=== PATIENT | female | born 1990 | race Two or more races ===

== ENCOUNTER 2019-08-27 20:47 | Emergency (ER) | payer SELFPAY ==
--- NOTE | 2019-08-27 21:03 | ER Document Report ---
ED Medical Screen (RME) - General Stated Complaint: ABDOMINAL PAIN/ Time Seen by Provider: 08/27/19 21:01 Notes: HPI: 29-year-old female who is approximately 3 months by dates presenting for vaginal bleeding intermittent over the last 5 days with pelvic cramping but significantly worse tonight. Passing some clots and dark bright red blood. Has not yet seen CLIENT SERVER DEVELOPER. PHYSICAL EXAMINATION: Limited exam in triage, patient with towel over the vaginal region with large amount of dark red blood noted I have greeted and performed a rapid initial assessment of this patient. A comprehensive ED assessment and evaluation of the patient, analysis of test results and completion of medical decision making process will be conducted by an additional ED providers.
[2019-08-27] MEDS ORDERED: ONDANSETRON HCL INJ/PF 4 MG/2 ML SDV IV ONE (21:34)
[2019-08-27] MEDS ORDERED: FENTANYL CITRATE INJ/PF 100 MCG/2 ML AMPUL IV ONE (21:34)
[2019-08-27 21:37] LABS: ABSOLUTE EOSINOPHILS # (AUTO) 0.1 10^3/uL (0.0-0.6); ABSOLUTE LYMPHOCYTES (AUTO) 2.8 10^3/uL (0.5-4.7); ABSOLUTE MONOCYTES (AUTO) 0.7 10^3/uL (0.1-1.4); ABSOLUTE NEUT (AUTO) 4.2 10^3/uL (1.7-8.2); BASOPHILS % (AUTO) 0.4 % (0-2); EOSINOPHILS % (AUTO) 1.2 % (0-6); HEMATOCRIT 35.5 % (36.0-47.0); HEMOGLOBIN 12.1 g/dL (12.0-15.5); LYMPHOCYTES % (AUTO) 35.5 % (13-45); MEAN CORPUSCULAR HEMOGLOBIN 31.2 pg (27.0-33.4); MEAN CORPUSCULAR VOLUME 92 fl (80-97); MONOCYTES % (AUTO) 8.7 % (3-13); PLATELET COUNT 368 10^3/uL (150-450); RED BLOOD COUNT 3.87 10^6/uL (3.72-5.28); RED CELL DISTRIBUTION WIDTH 12.6 % (11.5-14.0); SEGMENTED NEUTROPHILS % (AUTO) 54.2 % (42-78); TOTAL CELLS COUNTED % (AUTO) 100 %; WHITE BLOOD COUNT 7.8 10^3/uL (4.0-10.5)
[2019-08-27 21:46] LABS: ALBUMIN 4.4 g/dL (3.5-5.0); ALKALINE PHOSPHATASE 75 U/L (38-126); ANION GAP 9 (5-19); ASPARTATE AMINO TRANSFERASE 26 U/L (14-36); BILIRUBIN,TOTAL 0.4 mg/dL (0.2-1.3); BLOOD UREA NITROGEN 8 mg/dL (7-20); CALCIUM 10.2 mg/dL (8.4-10.2); CARBON DIOXIDE 25 mmol/L (22-30); CHLORIDE 102 mmol/L (98-107); GLUCOSE 92 mg/dL (75-110); POTASSIUM 4.1 mmol/L (3.6-5.0); TOTAL PROTEIN 7.7 g/dL (6.3-8.2)
--- NOTE | 2019-08-27 22:03 | ER Document Report ---
ED General - General Chief Complaint: OB Problem (<20wks) Stated Complaint: ABDOMINAL PAIN/ Time Seen by Provider: 08/27/19 21:01 Mode of Arrival: Ambulatory Information source: Patient Notes: triage 08/27/19 21:04 - ED Nursing Note by CAROL SAMUELS Num: [id number] : 1990 Patient Age: 29 information through [employer] #[id number]. pt is last period was 05/30/19. for five days some vaginal bleeding. 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 pt w/some cramping. pt crying. explained to pt that we will go to rm, get bloods and IV and check to see what is going on. charge nurse aware and pt to rm 20. Initialized on 08/27/19 21:04 - END OF NOTE tracie CORONADO notes HPI: 29-year-old female who is approximately 3 months by dates p resenting for vaginal bleeding intermittent over the last 5 days with pelvic cramping but significantly worse tonight. Passing some clots and dark bright red blood. Has not yet seen MASTER COSMETOLOGIST. PHYSICAL EXAMINATION: Limited exam in triage, patient with towel over the vaginal region with large amount of dark red blood noted my notes I was called to room by nursing staff as patient was miscarrying in the room. She delivered vaginally a 10 cm clot with placental and fetus contents. Patient denies any suprapubic pain but was very anxious and crying. She speaks some Sinhala but mainly Macedonian. She appeared to understand when I asked and would say yes or no. We did have hourly sign language interpreter on the console. His name was Drew. Patient reports she is 2 para 1 with a 5-year-old at home healthy. Patient denies any history of vaginal bleeding recent or otherwise. She denies any prior history of any miscarriage in the past. She denies any vaginal discharge or recent sex or horseback riding or bicycle riding her motorcycle riding. She denies any back pain fevers chills diarrhea constipation TRAVEL OUTSIDE OF THE [place] IN LAST 30 DAYS: No - Related Data Allergies/Adverse Reactions: No Known Allergies Allergy (Verified 08/27/19 21:54) Home Medications: vitamins. tylenol Past Medical History - General Information source: Patient - also with aid of translators Last Menstrual Period: 05/30/19 - Social History Smoking Status: Never Smoker Cigarette use (# per day): No Chew tobacco use (# tins/day): No Smoking Education Provided: No Frequency of alcohol use: None Drug Abuse: None Lives with: Family - Family History: Reviewed & Not Pertinent Patient has suicidal ideation: No Patient has homicidal ideation: No Review of Systems - Review of Systems Constitutional: See HPI, Weakness EENT: No symptoms reported Cardiovascular: No symptoms reported Respiratory: No symptoms reported Gastrointestinal: No symptoms reported Genitourinary: No symptoms reported Female Genitourinary: See HPI, Last menstrual period - May, , Vaginal bleeding Musculoskeletal: No symptoms reported Skin: No symptoms reported Hematologic/Lymphatic: No symptoms reported Neurological/Psychological: No symptoms reported Physical Exam - Vital signs Vitals: Temp 97.2 F 08/27/19 20:52 Interpretation: Tachycardic, Tachypneic - General General appearance: Alert, Anxious - HEENT Head: Normocephalic, Atraumatic Eyes: Normal Pupils: PERRL Mouth/Lips: Normal Mucous membranes: Normal Pharynx: Normal Neck: Normal - Respiratory Respiratory status: No respiratory distress Chest status: Nontender Breath sounds: Normal Chest palpation: Normal - Cardiovascular Rhythm: Regular Heart sounds: Normal auscultation Murmur: No - Abdominal Inspection: Normal Distension: No distension Bowel sounds: Normal Tenderness: Nontender Organomegaly: No organomegaly - Genitourinary External exam: Normal - Except for vaginal bleeding with passing of large clot with placental conceptual products Speculum exam: Cervix open, Products of conception Vaginal bleeding: Moderate Bimanuel exam: Cervical motion tender - Back Back: Normal - Extremities General upper extremity: Normal inspection General lower extremity: Normal inspection - Neurological Neuro grossly intact: Yes Cognition: Normal Orientation: AAOx4 Valerie Coma Scale Eye Opening: Spontaneous [place] Coma Scale Verbal: Oriented [place] Coma Scale Motor: Obeys Commands [place] Coma Scale Total: 15 Speech: Normal Motor strength normal: LUE, RUE, LLE, RLE Sensory: Normal - Psychological Associated symptoms: Anxious - Skin Skin Temperature: Warm Skin Moisture: Dry Course - Vital Signs Vital signs: Temp Pulse Resp BP Pulse Ox 98.1 F 104 H 13 122/76 98 08/27/19 21:06 08/27/19 21:06 08/27/19 23:00 08/27/19 22:01 08/27/19 23:00 - Laboratory Result Diagrams: 08/27/19 21:11 08/27/19 21:11 Laboratory results interpreted by me: 08/27/19 08/27/19 21:11 21:11 Hct 35.5 L Sodium 136.0 L Creatinine 0.50 L Beta HCG, Quant 94784.00 H - Diagnostic Test Radiology reviewed: Reports reviewed - Ultrasound with uterus nonvisualized ovaries per radiology report. I was in the room while timber management technician was performing the ultrasound. Critical Care Note - Critical Care Note Total time excluding time spent on procedures (mins): 90 Comments: I did not call Dr. Trever Armendariz, OB doctor but advised patient to call him on Thursday and perhaps be seen by him in office. I advised vaginal rest and bedrest Discharge - Discharge Clinical Impression: Complete Condition: Good Disposition: HOME, SELF-CARE Additional Instructions: I advised complete bedrest except for bathroom privileges and complete vaginal rest until seen by Dr. Trever Armendariz or OB doctor of choice. Call Dr. Armendariz's office on Thursday. Take medicines as directed encourage fluids
[2019-08-27] MEDS ORDERED: METHYLERGONOVINE MALEATE INJ/PF 0.2 MG/1 ML AMPULE IV ONE (22:28)
[2019-08-27] MEDS ORDERED: NORMAL SALINE 1000 ML 1,000 ML IV ONE (22:43)
--- NOTE | 2019-08-27 23:15 | RADIOLOGY REPORT (SQ) ---
EXAM DESCRIPTION: US LIMITED COMPLETED DATE/TME: 08/27/2019 21:02 CLINICAL HISTORY: 29 years Female, vag bleed patient delivered fetus and placenta in the ED prior to exam Comparison: None. Technique: Transabdominal. LIMITATIONS: None. FINDINGS: 12-cm recently uterus, 2.9-cm endometrial stripe thickness, nonvisualized ovaries appear otherwise unremarkable in size, shape, echotexture, and vascularity. No free fluid. No retained products of conception. IMPRESSION: uterus. Nonvisualized ovaries.
[2019-08-27] MEDS ORDERED: HYDROCODONE/ACETAMINOPHEN 5-325 MG (6 TAB/ER DISP) PO PRN (23:56)
[2019-08-28 00:11] VITALS: BP 108/44
== END 2019-08-28 00:11 | disposition home or self-care (01) ==
LOC: ER 20:47
DX: O03.9 Complete or unspecified spontaneous abortion without complication (principal); R53.1 Weakness; Z79.899 Other long term (current) drug therapy
CPT/HCPCS: 99285; 96361; 96374; 96375; 86900; 86901; 36415; 84702; 85025; 80053; 88305 ×2; 76815; J3010; J2210; J2405; J7030

== ENCOUNTER → 2019-12-21 | Outpatient (CLI) | payer MEDICAID ==
--- NOTE | 2019-12-21 13:36 | WOMENS IMAGING REPORT ---
EXAM DESCRIPTION: U/S BREAST UNILATERAL, COMPL IMAGES COMPLETED DATE/TIME: 12/21/2019 12:14 pm REASON FOR STUDY: N 64.4 PAIN RIGHT; N64.4 MASTODYNIA LEFT N64.4 MASTODYNIA diffuse breast pain bi laterally. No palpable mass. COMPARISON: None. TECHNIQUE: Real-time and static grayscale imaging performed of the right and left breast . Selected color Doppler images recorded. LIMITATIONS: None. FINDINGS: MASS: No mass identified. Normal glandular tissue. OTHER: No other significant finding. IMPRESSION: No suspicious findings detected by ultrasound in either breast. Further management of t he patient's pain should be based on clinical evaluation. Recommend annual routine screening mammogr aphy beginning at age 40 unless otherwise clinically indicated. BIRAD: 1 Negative. RECOMMENDATION: RECOMMENDED FOLLOW-UP: Follow-up as clinically indicated. COMMENT: The [employer] (ACR) has developed recommendations for screening MRI of the breasts in certain patient populations, to be used in conjunction with mammography. Breast MRI s urveillance may be appropriate for women with more than 20% lifetime risk of developing breast cancer as determined by genetic testing, significant family history of the disease, or history of mantle r adiation for Hodgkins Disease. ACR Practice Guidelines 2008. TECHNICAL DOCUMENTATION: JOB ID: [id number] 2010 [employer]- All Rights Reserved Reading location - IP/workstation name: [email or web address]
--- NOTE | 2019-12-21 13:36 | WOMENS IMAGING REPORT ---
EXAM DESCRIPTION: U/S BREAST UNILATERAL, COMPL IMAGES COMPLETED DATE/TIME: 12/21/2019 12:14 pm REASON FOR STUDY: N 64.4 PAIN RIGHT; N64.4 MASTODYNIA LEFT N64.4 MASTODYNIA diffuse breast pain bi laterally. No palpable mass. COMPARISON: None. TECHNIQUE: Real-time and static grayscale imaging performed of the right and left breast . Selected color Doppler images recorded. LIMITATIONS: None. FINDINGS: MASS: No mass identified. Normal glandular tissue. OTHER: No other significant finding. IMPRESSION: No suspicious findings detected by ultrasound in either breast. Further management of t he patient's pain should be based on clinical evaluation. Recommend annual routine screening mammogr aphy beginning at age 40 unless otherwise clinically indicated. BIRAD: 1 Negative. RECOMMENDATION: RECOMMENDED FOLLOW-UP: Follow-up as clinically indicated. COMMENT: The [employer] (ACR) has developed recommendations for screening MRI of the breasts in certain patient populations, to be used in conjunction with mammography. Breast MRI s urveillance may be appropriate for women with more than 20% lifetime risk of developing breast cancer as determined by genetic testing, significant family history of the disease, or history of mantle r adiation for Hodgkins Disease. ACR Practice Guidelines 2008. TECHNICAL DOCUMENTATION: JOB ID: [id number] 2010 [employer]- All Rights Reserved Reading location - IP/workstation name: [email or web address]
== END ==
LOC: WI 12:42
PROVIDERS: ATTEND Advanced Practice Midwife
DX: N64.4 Mastodynia (principal)
CPT/HCPCS: 76641

== ENCOUNTER 2020-01-12 21:13 | Emergency (ER) | payer MEDICAID ==
[2020-01-12 22:20] VITALS: BP 136/54
--- NOTE | 2020-01-12 23:01 | ER Document Report ---
ED Medical Screen (RME) - General Chief Complaint: Breast Problem Stated Complaint: NECK AND ARM PAIN/NUMBNESS Time Seen by Provider: 01/12/20 22:45 Primary Care Provider: LEOBARDO RODRIGUEZ CNM [Primary Care Provider] - Follow up as needed Mode of Arrival: Ambulatory Information source: Patient Notes: 29-year-old female presented to ED for complaint of pain to both breasts about a month ago. She states she was seen and told that there was nothing going on. About 2 weeks ago she started having pain all over. She had no fever no shortness of breath no runny nose no other symptoms but pain all over. She states she is never had this pain before. I did use [employer] laboratory tech [id number] to do this interview. She has not had any falls or any injuries. I have discussed with her that we will get basic labs and get a covered test and have her seen by another provider. I have greeted and performed a rapid initial assessment of this patient. A comprehensive ED assessment and evaluation of the patient, analysis of test results and completion of medical decision making process will be conducted by an additional ED providers. TRAVEL OUTSIDE OF THE [place] IN LAST 30 DAYS: No - Related Data Allergies/Adverse Reactions: No Known Allergies Allergy (Verified 08/27/19 21:54) Past Medical History - Social History Frequency of alcohol use: None Drug Abuse: None Physical Exam - Vital signs Vitals: Temp Pulse Resp BP Pulse Ox 98.4 F 94 16 136/54 H 100 01/12/20 22:19 01/12/20 22:19 01/12/20 22:19 01/12/20 22:19 01/12/20 22:19 Course - Vital Signs Vital signs: Temp Pulse Resp BP Pulse Ox 98.4 F 94 16 136/54 H 100 01/12/20 22:19 01/12/20 22:19 01/12/20 22:19 01/12/20 22:19 01/12/20 22:19 Doctor's Discharge - Discharge Referrals: LEOBARDO RODRIGUEZ CNM [Primary Care Provider] - Follow up as needed
== END 2020-01-13 02:37 | disposition left against medical advice (07) ==
LOC: ER 21:13
DX: N64.4 Mastodynia (principal); M54.2 Cervicalgia; M79.603 Pain in arm, unspecified; Z53.20 Procedure and treatment not carried out because of patient's decision for unspecified reasons
CPT/HCPCS: 99281

== ENCOUNTER 2020-02-15 14:07 | Emergency (ER) | payer MEDICAID ==
--- NOTE | 2020-02-15 14:32 | ER Document Report ---
ED Medical Screen (RME) - General Chief Complaint: Lower Abdominal Pain Stated Complaint: LOWER ABDOMINAL PAIN Time Seen by Provider: 02/15/20 14:31 Primary Care Provider: JOANNA POLLARD FNP [Primary Care Provider] - Follow up as needed Mode of Arrival: Ambulatory Information source: Patient Notes: 29-year-old female presented to ED for pelvic cramping no bleeding vaginal itching. She states she is about 4 weeks . She states she did have a miscarriage about 6 months ago. She states she is 3 para 1. Her is translating as she speaks Argentine. Patient is answered in some of the questions she understands some of what I saying. But she does not understand her is helping with. She is alert oriented respirations regular nonlabored speaking in full sentences. We will get blood urine and transvaginal ultrasound. I have greeted and performed a rapid initial assessment of this patient. A comprehensive ED assessment and evaluation of the patient, analysis of test results and completion of medical decision making process will be conducted by an additional ED providers. TRAVEL OUTSIDE OF THE [place] IN LAST 30 DAYS: No - Related Data Allergies/Adverse Reactions: No Known Allergies Allergy (Verified 02/15/20 14:35) Doctor's Discharge - Discharge Referrals: JOANNA POLLARD FNP [Primary Care Provider] - Follow up as needed
[2020-02-15 14:38] VITALS: BP 131/81
[2020-02-15 15:04] LABS: ABSOLUTE LYMPHOCYTES (AUTO) 1.8 10^3/uL (0.5-4.7); ABSOLUTE MONOCYTES (AUTO) 0.6 10^3/uL (0.1-1.4); ABSOLUTE NEUT (AUTO) 5.5 10^3/uL (1.7-8.2); BASOPHILS % (AUTO) 0.5 % (0-2); EOSINOPHILS % (AUTO) 0.5 % (0-6); HEMATOCRIT 37.7 % (36.0-47.0); HEMOGLOBIN 12.6 g/dL (12.0-15.5); MEAN CORPUSCULAR HEMOGLOBIN 30.8 pg (27.0-33.4); MEAN CORPUSCULAR HGB CONC 33.4 g/dL (32.0-36.0); MEAN CORPUSCULAR VOLUME 92 fl (80-97); MONOCYTES % (AUTO) 7.3 % (3-13); PLATELET COUNT 370 10^3/uL (150-450); RED BLOOD COUNT 4.08 10^6/uL (3.72-5.28); SEGMENTED NEUTROPHILS % (AUTO) 68.7 % (42-78); TOTAL CELLS COUNTED % (AUTO) 100 %; WHITE BLOOD COUNT 7.9 10^3/uL (4.0-10.5)
[2020-02-15 15:18] LABS: ALBUMIN 4.6 g/dL (3.5-5.0); ALKALINE PHOSPHATASE 79 U/L (38-126); ANION GAP 12 (5-19); ASPARTATE AMINO TRANSFERASE 28 U/L (14-36); BILIRUBIN,DIRECT 0.1 mg/dL (0.0-0.4); BILIRUBIN,TOTAL 0.3 mg/dL (0.2-1.3); BLOOD UREA NITROGEN 9 mg/dL (7-20); CALCIUM 10.2 mg/dL (8.4-10.2); CARBON DIOXIDE 22 mmol/L (22-30); CHLORIDE 105 mmol/L (98-107); GLUCOSE 111 mg/dL (75-110); TOTAL PROTEIN 7.8 g/dL (6.3-8.2)
[2020-02-15 15:22] LABS: APPEARANCE,URINE SLIGHTLY-CLOUDY; BILIRUBIN,URINE NEGATIVE (NEGATIVE); COLOR,URINE YELLOW; GLUCOSE, URINE NEGATIVE (NEGATIVE); KETONES,URINE NEGATIVE (NEGATIVE); LEUKOCYTE ESTERASE,URINE MODERATE (NEGATIVE); NITRITE,URINE NEGATIVE (NEGATIVE); PROTEIN,URINE NEGATIVE (NEGATIVE); URINE SPECIFIC GRAVITY 1.029; UROBILINOGEN,URINE NEGATIVE mg/dL (<2.0)
--- NOTE | 2020-02-15 16:18 | RADIOLOGY REPORT (SQ) ---
EXAM DESCRIPTION: U/S OB TRANSVAGINAL W/O DOP IMAGES COMPLETED DATE/TIME: 02/15/2020 4:04 pm REASON FOR STUDY: about 4 weeks pelvic cramping COMPARISON: None. TECHNIQUE: Transvaginal static and realtime grayscale images acquired of the pelvis. Additional kimberly cted spectral and color Doppler images recorded. All images stored on PACs. CLINICAL AGE: 5 weeks 1 day [facility].31 LIMITATIONS: None. FINDINGS: UTERUS: No visualized intrauterine . Possible arcuate uterus. RIGHT ADNEXA: Normal ovary with normal vascular flow. No adnexal free fluid. No adnexal masses. LEFT ADNEXA: Normal ovary with normal vascular flow. No adnexal free fluid. No adnexal masses. FREE FLUID: None. OTHER: No other significant finding. IMPRESSION: NO VISUALIZED INTRA- OR EXTRAUTERINE . bHCG LEVEL TOO LOW TO EXPECT VISUALIZATION OF . ECTOPIC CANNOT BE EXCLUDED. FOLLOW-UP ULTRASOUND AND SERIAL BHCG LEVELS STRONGLY RECOMMENDED TO ACCURATELY ASSESS STATU S. POSSIBLE ARCUATE UTERUS. TECHNICAL DOCUMENTATION: JOB ID: [id number] 2010 [employer]- All Rights Reserved Reading location - IP/workstation name: [email or web address]
--- NOTE | 2020-02-15 22:00 | ER Document Report ---
ED GI/ - General Chief Complaint: Vaginal Itching Stated Complaint: LOWER ABDOMINAL PAIN Time Seen by Provider: 02/15/20 14:31 Primary Care Provider: ARMANDO THOMAS MD [ACTIVE STAFF] - Follow up as needed JOANNA POLLARD FNP [Primary Care Provider] - Follow up as needed Mode of Arrival: Ambulatory Information source: Patient, Relative Notes: Patient is a 29-year-old female who is accompanied by her to the emergency room complaining of some slight pelvic discomfort with some radiation around to the back and vaginal itching. Patient states that she is approximately 4 weeks . She started having this symptoms approximately 2 days ago. She denies any vaginal discharge or any vaginal bleeding or spotting. Patient understands a lot of Ivorian but does not speak it fluently but her does speak fluent Ivorian and translates for us. He informs me that they have an appointment [facility] Thursday and also follow-up visit with the health department that week as well. Patient is current status shows her to be 3 Para1 A1 which was a spontaneous miscarriage at at 3 months approximately 6 months ago. Patient denies any other medical problems. She denies a history of hypertension or diabetes. Her only live was vaginally. Patient denies any recent use of antibiotics, but she does admit to using body wash that she thoroughly scrubs inside the vaginal introitus. TRAVEL OUTSIDE OF THE [place] IN LAST 30 DAYS: No - HPI Patient complains to provider of: Pelvic pain, . No: Abdominal pain, Dysuria, Flank pain, Hematuria, Urinary retention, Vaginal bleeding, Vaginal discharge, Vaginal pain, Vomiting Onset: Other - 2 to 3 days Timing/Duration: Gradual Quality of pain: Achy Severity at maximum: Moderate Severity in ED: Moderate Pain Level: 3 Context: . denies: Bad food Location: Suprapubic, Vaginal Vaginal bleeding (Compared to normal period): None Menstrual period history: LMP: Approximately 1 month ago : 3 Para: 1 Abortions: 1 ABO type: O+ OB ultrasound done: Yes vitamins taken: Yes Sexual history: Active Associated symptoms: Radiates to back. denies: Odor, Painful intercourse, Shortness of breath, Urinary hesitancy, Urinary frequency, Urinary retention, Urinary urgency, Vaginal discharge Exacerbated by: Denies Relieved by: Denies Similar symptoms previously: No Recently seen / treated by doctor: Yes - Related Data Allergies/Adverse Reactions: No Known Allergies Allergy (Verified 02/15/20 14:35) Past Medical History - General Information source: Patient - Social History Smoking Status: Never Smoker Chew tobacco use (# tins/day): No Frequency of alcohol use: None Drug Abuse: None Lives with: Family Family History: Reviewed & Not Pertinent Patient has homicidal ideation: No Review of Systems - Review of Systems Constitutional: No symptoms reported EENT: No symptoms reported Cardiovascular: No symptoms reported Respiratory: No symptoms reported Gastrointestinal: No symptoms reported Genitourinary: See HPI, Pain. denies: Discharge Female Genitourinary: See HPI, . denies: Irregular period, Vaginal discharge, Vaginal bleeding, Vaginal odor, Painful intercourse Musculoskeletal: No symptoms reported Skin: No symptoms reported Hematologic/Lymphatic: No symptoms reported Neurological/Psychological: No symptoms reported -: Yes All other systems reviewed and negative Physical Exam - Vital signs Vitals: Temp Pulse Resp BP Pulse Ox 99.2 F 119 H 16 131/81 H 100 02/15/20 14:32 02/15/20 14:32 02/15/20 14:32 02/15/20 14:32 02/15/20 14:32 Interpretation: Hypertensive, Tachycardic - Notes Notes: PHYSICAL EXAMINATION: GENERAL: Well-appearing, well-nourished and in no acute distress. HEAD: Atraumatic, normocephalic. NECK: Normal range of motion, supple without lymphadenopathy LUNGS: Breath sounds clear to auscultation bilaterally and equal. No wheezes rales or rhonchi. HEART: Tachycardic rate 119 bpm and rhythm without murmurs ABDOMEN: Soft, nontender, nondistended abdomen. No guarding, no rebound. No masses appreciated. Female : Pelvic examination showed a normal exterior genitalia. Further evaluation of the introitus area does show there is some dry reddish rash further exploration in the vaginal canal does show some mild adherent white discharge. Minimal visualization of the cervix shows to be closed and normal- appearing with a slight whitish-lozada adherent discharge. Odor unable to ascertain secondary to facial mask being worn Musculoskeletal: Normal range of motion, no pitting or edema. No cyanosis. NEUROLOGICAL: Normal speech, normal gait. Normal sensory, motor exams PSYCH: Normal mood, normal affect. SKIN: Warm, Dry, normal turgor, no rashes or lesions noted. Course - Vital Signs Vital signs: Temp Pulse Resp BP Pulse Ox 99.2 F 119 H 16 131/81 H 100 02/15/20 14:32 02/15/20 14:32 02/15/20 14:32 02/15/20 14:32 02/15/20 14:32 - Laboratory Result Diagrams: 02/15/20 14:40 02/15/20 14:40 Laboratory results interpreted by me: 02/15/20 02/15/20 14:40 14:40 Glucose 111 H Beta HCG, Quant 885.31 H Ur Leukocyte Esterase MODERATE H Discharge - Discharge Clinical Impression: Bacterial vaginosis in Condition: Stable Disposition: HOME, SELF-CARE Instructions: Pelvic Pain in ([facility]), Vaginosis, Bacterial ([facility]) Additional Instructions: As we have discussed your ultrasound did not show a implanted at this time however your quantitative number that we talked about is very low and shows that you are probably less than 4 weeks and what that would go along with the ultrasound results. Our goal now is to do serial blood work to see how you are progressing. That number should double every 3 days. I am giving you a prescription to go to outpatient services on this Thursday to have the lab work done. They will get the results and contact the [employer] [facility]. Should you have any change in your symptoms over the course of the next few days and have any type of bleeding or increasing pain return to ER for reevaluation. I am also treating you for a infection called bacterial vaginosis and you can take 1 pill twice a day. However I know since you are you will not drink alcohol but if you attempt to drink alcohol with this medication you will make you violently sick. Prescriptions: Metronidazole [Flagyl] 500 mg PO BID #14 tablet Forms: Follow-Up Laboratory Testing Referrals: JOANNA POLLARD FNP [Primary Care Provider] - Follow up as needed ARMANDO THOMAS MD [ACTIVE STAFF] - Follow up as needed
[2020-02-15 22:05] LABS: RBCS (WET MOUNT) 1+ RBCS SEEN; T.VAGINALIS (WET MOUNT) NO TRICHOMONAS SEEN; WBCS (WET MOUNT) 4+ WBCS SEEN; YEAST (WET MOUNT) NO YEAST SEEN
--- OUTSIDE RECORDS SUMMARY | 2020-02-17 14:47 | XMS REPORT ---
:1990 Author Organization [facility] Address [facility] [address] [place] [address] Care Team Providers Name Role Phone Kirby Adame Attending Clinician Unavailable Allergies, Adverse Reactions, Alerts This patient has no known allergies or adverse reactions. Medications This patient has no known medications. Problems This patient has no known problems. Procedures Procedure Date / Time Performed Performing Clinician Devic e OFFICE/OUTPATIENT VISIT [facility] 2020-01-13 13:30:00 Results Test Description Test Time Test Comments Text Results Atomic Results Result Comments COMPREHENSIVE METABOLIC PANEL 2020-01-14 02:58:00 Test Item Value Reference Range Comments GLUCOSE (test code = 2345-7) 85 mg/dL 65-99 Fas ting reference interval UREA NITROGEN (BUN) (test 9 mg/dL 10-28 code = 3094-0) CREATININE (test code = 0.58 mg/dL 0.50-1.10 0-0) eGFR NON-AFR. ECUADOREAN (test 125 mL/min/1.73m2 >=60 code = 51539-5) eGFR (test 144 mL/min/1.73m2 >=60 code = 81870-6) BUN/CREATININE RATIO (test NOT APPLICABLE (calc) 09-25 code = 3097-3) SODIUM (test code = 2951-2) 141 mmol/L 135-146 POTASSIUM (test code = 4.7 mmol/L 3.5-5.3 3-3) CHLORIDE (test code = 108 mmol/L 98-110 5-0) CARBON DIOXIDE (test code = 25 mmol/L 20-32 2027-9) CALCIUM (test code = 9.4 mg/dL 8.6-10.2 34168-0) PROTEIN, TOTAL (test code = 7.1 g/dL 6.1-8.1 2885-2) ALBUMIN (test code = 1751-7) 4.3 g/dL 3.6-5.1 GLOBULIN (test code = 2.8 g/dL (calc) 1.9-3.7 72704-7) ALBUMIN/GLOBULIN RATIO (test 1.5 (calc) 1.0-2.5 code = 1759-0) BILIRUBIN, TOTAL (test code 0.4 mg/dL 0.2-1.2 = 1974-) ALKALINE PHOSPHATASE (test 60 U/L 31-125 code = 6768-6) AST (test code = 1920-8) 14 U/L 10-30 ALT (test code = 1742-6) 11 U/L 6-29 CREATINE KINASE, [id number] 02:58:00 Test Item Value Reference Range Comments CREATINE KINASE, TOTAL (test code = 2157-6) 88 U/L 29-1 43 CBC (INCLUDES DIFF/PLT)2020-01-14 00:48:00 Test Item Value Reference Range Comments WHITE BLOOD CELL COUNT (test code = 6690-2) 4.6 Thousand/uL 3.8- 10.8 RED BLOOD CELL COUNT (test code = 789-8) 3.84 Million/uL 3.80-5. 10 HEMOGLOBIN (test code = 718-7) 11.2 g/dL 11.7-15.5 HEMATOCRIT (test code = 4544-3) 34.5 % 35.0-45.0 MCV (test code = 787-2) 89.8 fL 80.0-100.0 MCH (test code = 785-6) 29.2 pg 27.0-33.0 MCHC (test code = 786-4) 32.5 g/dL 32.0-36.0 RDW (test code = 788-0) 13.3 % 11.0-15.0 PLATELET COUNT (test code = 777-3) 367 Thousand/uL 140-400 MPV (test code = 776-5) 10.1 fL 7.5-12.5 ABSOLUTE NEUTROPHILS (test code = 751-8) 2355 cells/uL 1500-78 00 ABSOLUTE LYMPHOCYTES (test code = 731-0) 1803 cells/uL 850-390 0 ABSOLUTE MONOCYTES (test code = 742-7) 382 cells/uL 200-950 ABSOLUTE EOSINOPHILS (test code = 711-2) 41 cells/uL 15-500 ABSOLUTE BASOPHILS (test code = 704-7) 18 cells/uL 0-200 NEUTROPHILS (test code = 770-8) 51.2 % LYMPHOCYTES (test code = 736-9) 39.2 % MONOCYTES (test code = 5905-5) 8.3 % EOSINOPHILS (test code = 713-8) 0.9 % BASOPHILS (test code = 706-2) 0.4 % Assessments Condition Name Status Diagnosis Date Treating Clinici an Mastodynia Active Pain in thoracic spine Active Right upper quadrant pain Active Abnormal levels of other serum enzymes Active Encounters Start End Encounter Admission Attending Care Care Encounter Date/Time Date/Time Type Type Clinicians Facility Department ID 2020-01-13 2020-01-13 Outpatient [facility] [place] [id number] 13:30:00 13:30:00 Kirby Prado [id number] s [id number] and [id number] [facility], Social History This patient has no known social history. Vital Signs This patient has no known vital signs.
== END 2020-02-15 23:08 | disposition home or self-care (01) ==
LOC: ER 14:07
DX: O23.591 Infection of other part of genital tract in pregnancy, first trimester (principal); B96.89 Other specified bacterial agents as the cause of diseases classified elsewhere; O26.891 Other specified pregnancy related conditions, first trimester; R10.2 Pelvic and perineal pain; M54.9 Dorsalgia, unspecified; Z3A.01 Less than 8 weeks gestation of pregnancy
CPT/HCPCS: 36415; 76817; 80053; 81001; 84702; 85025; 86900; 86901; 87086; 87210; 99284

== ENCOUNTER → 2020-02-20 | Outpatient (CLI) | payer MEDICAID ==
--- NOTE | 2020-02-21 10:03 | WOMENS IMAGING REPORT ---
EXAM DESCRIPTION: U/S BREAST UNILATERAL, COMPL IMAGES COMPLETED DATE/TIME: 02/20/2020 9:42 am REASON FOR STUDY: N64.4 MASTODYNIA-LEFT; N64.4 MASTODYNIA-RIGHT N64.4 MASTODYNIA COMPARISON: 12/21/2019. TECHNIQUE: Static and Realtime grayscale interrogation of the entire right and left breast acquired. Selected color doppler/spectral images saved to PACS. LIMITATIONS: None. FINDINGS: Masses:No cystic or solid masses identified Architecture:No alteration of normal morphology. No skin thickening. No edema. Other: None. IMPRESSION: No suspicious findings detected by ultrasound. BIRAD: 1 Negative. RECOMMENDATION: RECOMMENDED FOLLOW-UP: Follow-up as clinically indicated. Note that the patient wiggins d bilateral breast ultrasound performed 2 months ago for the same reason. COMMENT: The [employer] ([employer]) has developed recommendations for screening MRI of the breasts in certain patient populations, to be used in conjunction with mammography. Breast MRI s urveillance may be appropriate for women with more than 20% lifetime risk of developing breast cancer as determined by genetic testing, significant family history of the disease, or history of mantle r adiation for Hodgkins Disease. [employer] Practice Guidelines 2008. TECHNICAL DOCUMENTATION: FINDING NUMBER: (1) ASSESSMENT: (1) JOB ID: [id number] 2010 [employer]- All Rights Reserved Reading location - IP/workstation name: [email or web address]
== END ==
LOC: WI 14:50
PROVIDERS: ATTEND Nurse Practitioner Family
DX: N64.4 Mastodynia (principal)
CPT/HCPCS: 76641